=== PATIENT | male | born 1995 | race Caucasian/White ===

== ENCOUNTER 2024-11-12 18:57 | Emergency (ER) | payer OTHER ==
[2024-11-12 19:11] VITALS: BP 116/60; PULSE 84; RESP 18; TEMP 98.3; BMI 22.2
[2024-11-12 21:31] LABS: THROAT:GRP A STREP NOT DETECTED (NOTDETECTED)
[2024-11-12] MEDS ORDERED: ONDANSETRON *ODT* 4 MG TABLET ONE (22:19)
[2024-11-12] MEDS ORDERED: ONDANSETRON 4 MG TABLET PO ONE (22:20)
[2024-11-12] MEDS: ONDANSETRON *ODT* 4 MG TABLET SL ONE (22:21)
== END 2024-11-12 23:05 | disposition home or self-care (01) ==
LOC: JERFT 18:57
DX: A08.4 Viral intestinal infection, unspecified (principal); R50.9 Fever, unspecified; R11.2 Nausea with vomiting, unspecified; Z20.822 Contact with and (suspected) exposure to COVID-19
CPT/HCPCS: 0241U-QW; 87651; 99283-25; Q0162